=== PATIENT | female | born 1975 | race Caucasian/White ===

== ENCOUNTER 2017-01-09 11:11 | Emergency (ER) | payer MEDICARE, OTHER ==
[2017-01-09 11:32] VITALS: BP 118/92
--- OUTSIDE RECORDS SUMMARY | 2017-01-09 13:21 | XMS REPORT | CCD ---
:1975 Author Name RUTHANN VILLALTA Address [address] [facility] Unavailable [place], [place] [id number] Care Team Providers Name Role Phone EVE HUGHES, PAM BYRNE Attending Physician Unavailable PAM PRADO MD Er Physician 1 Unavailable VIOLET Bellaym Registered Nurse Unavailable Vital Signs Unknown. Allergies Allergy Code Allergy Type Reaction Status Unknown Code - 0 0 Propensity to adverse reactions (disorder) Active PERCOCET 0 Drug allergy (disorder) NAUSEA Active TETRACYCLINE 0 Drug allergy (disorder) Active TRIPTAN 0 Drug allergy (disorder) Active DOXYCYCLINE 0 Drug allergy (disorder) Active Procedures Unknown. History of Immunizations Unknown. Problems Unknown. Results CBC Test Name Code Test Result Test Units Test Date/Time WBC 6690-2 9.5000 K/uL 02/10/2014 14:08 RBC 789-8 4.0100 M/uL 02/10/2014 14:08 HEMOGLOBIN 718-7 13.1000 g/dL 02/10/2014 14:08 HEMATOCRIT 39.3000 % 02/10/2014 14:08 MCV 98.0000 fL 02/10/2014 14:08 MCH 32.7000 PG 02/10/2014 14:08 MCHC 33.3000 G/DL 02/10/2014 14:08 RDW-SD 48.3000 FL 02/10/2014 14:08 RDW-CV 13.9000 % 02/10/2014 14:08 PLATELETS 300.0000 K/UL 02/10/2014 14:08 MPV 10.7000 FL 02/10/2014 14:08 %GRAN 55.7000 % 02/10/2014 14:08 %LYMPH 31.3000 % 02/10/2014 14:08 %MONO 9.9000 % 02/10/2014 14:08 %EOS 2.6000 % 02/10/2014 14:08 %BASO 0.5000 % 02/10/2014 14:08 #GRAN 5.3000 K/UL 02/10/2014 14:08 #LYMPH 2.9800 K/UL 02/10/2014 14:08 #MONO 0.9400 K/UL 02/10/2014 14:08 #EOS 0.2500 K/UL 02/10/2014 14:08 #BASO 0.0500 K/UL 02/10/2014 14:08 SLIDE REVIEWED? NOT INDICATED N/A 02/10/2014 14:08 MANUAL DIFF NOT INDICATED N/A 02/10/2014 14:08 UA W/MICROSCOPIC EXAM Test Name Code Test Result Test Units Test Date/Time COLOR UR DK YELLOW N/A 02/10/2014 14:28 CLARITY UR CLOUDY N/A 02/10/2014 14:28 SP GRAV UR 1.025 N/A 02/10/2014 14:28 PH UR 6.0 N/A 02/10/2014 14:28 PROTEIN UR 1+ N/A 02/10/2014 14:28 GLUCOSE UR NEGATIVE N/A 02/10/2014 14:28 KETONE UR TRACE N/A 02/10/2014 14:28 BILIRUBIN UR NEGATIVE N/A 02/10/2014 14:28 BLOOD UR 2+ N/A 02/10/2014 14:28 LEUK UR 1+ N/A 02/10/2014 14:28 NITRITE UR POSITIVE N/A 02/10/2014 14:28 MICRO SEE BELOW N/A 02/10/2014 14:28 RBC/hpf 6 N/A 02/10/2014 14:28 WBC/hpf 12 N/A 02/10/2014 14:28 EPI UR 0-2 N/A 02/10/2014 14:28 BACTERIA UR MANY N/A 02/10/2014 14:28 MUCOUS FEW/LPF N/A 02/10/2014 14:28 CAST NONE SEE N/A 02/10/2014 14:28 CRYSTALS NONE SEE N/A 02/10/2014 14:28 CULTURE? YES N/A 02/10/2014 14:28 COMPREHENSIVE METABOLIC PANEL Test Name Code Test Result Test Units Test Date/Time GLUCOSE 103.0000 mg/dL 02/10/2014 14:08 SODIUM 139.0000 mmol/L 02/10/2014 14:08 POTASSIUM 3.3000 mmol/L 02/10/2014 14:08 CHLORIDE 107.0000 mmol/L 02/10/2014 14:08 CO2 24.0000 mmol/L 02/10/2014 14:08 BUN 13.0000 mg/dL 02/10/2014 14:08 CREATININE 1.0000 mg/dL 02/10/2014 14:08 BUN/CREAT 13.0000 02/10/2014 14:08 CALCIUM 9.5000 mg/dL 02/10/2014 14:08 TOTAL BILI 0.4000 mg/dL 02/10/2014 14:08 TOTAL PROTEIN 7.3000 g/dL 02/10/2014 14:08 ALBUMIN 3.7000 g/dL 02/10/2014 14:08 A/G RATIO 1.0000 02/10/2014 14:08 ALKALINE PHOS 131.0000 IU/L 02/10/2014 14:08 AST/SGOT 47.0000 IU/L 02/10/2014 14:08 ALT/SGPT 40.0000 IU/L 02/10/2014 14:08 ANION GAP 11.1000 mmol/L 02/10/2014 14:08 AGE 38.0000 YEARS 02/10/2014 14:08 GFR 66.6800 ml/min 02/10/2014 14:08 HCG QUALITATIVE, URINE Test Name Code Test Result Test Units Test Date/Time BHCG, URINE NEGATIVE N/A 02/10/2014 14:28 Medications Unknown. Medications Administered Unknown. Encounters Encounter Diagnosis Diagnosis Code Start Date PYELONEPHRITIS NOS 83603 02/10/2014 Social History Smoking Status Code Start Date End Date Current every day smoker 300202895 Patient Decision Aids Patient Decision Aid [facility] Patient Educational Materials Instructions You were admitted to [facility] on 02/10/2014 with a principle diagnosis of PYELONEPHRITIS NOS. You had the following procedures done:INJECT INFUSE NEC You were discharged from [facility] on 02/10/2014. Should you have any questions prior to discharge, please contact a member of your healthcare team. If you have left the hospital and have any questions, please contact your primary care physician. Chief Complaint and Reason For Visit Chief Complaint Date of Onset POSSIBLE KIDNEY STONE Function Status Unknown. Plan of Care Unknown. Referral/Transition of Care Unknown.
--- OUTSIDE RECORDS SUMMARY | 2017-01-09 13:21 | XMS REPORT | CCD ---
:1975 Author Name JAMILAH MIRAMONTES Address [address] [facility] Unavailable [place], [place] [id number] Care Team Providers Name Role Phone LISA GARZA Attending Physician Unavailable LISA GARZA Er Physician 1 Unavailable Vital Signs Vital Sign Value Unit Date/Time Recent/Initial? Weight Measured 199 lbs 03/22/2015 09:33 Initial VS Height 63 in 03/22/2015 09:33 Initial VS BMI (Body Mass Index) 35.25 kg/m^2 03/22/2015 09:33 Initial VS BSA (Body Surface Area) 2 m^2 03/22/2015 09:33 Initial VS Allergies Allergy Code Allergy Type Reaction Status Unknown Code - 0 0 Propensity to adverse reactions Active PERCOCET 85676 Drug allergy NAUSEA Active TETRACYCLINE 81921 Drug allergy NAUSEA Active TRIPTAN 0 Drug allergy PANIC ATTACKS Active DOXYCYCLINE 3640 Drug allergy NAUSEA Active Procedures Unknown or Not Available. History of Immunizations Immunization Code Date pneumococcal polysaccharide PPV23 33 08/11/2013 Influenza, seasonal, injectable, preservative free 140 09/09/2014 Influenza, seasonal, injectable 141 08/11/2013 no vaccine administered 998 1977 Problems Unknown or Not Available. Results Unknown or Not Available. Active Medications Medication Code Dose Units Frequency Route Modification Start Date/Time Abilify 10MG 683936 10 MILLIGRAMS DAILY ORAL 03/22/2015 Oral Tablet 09:51 Albuterol 088679 1 EACH INHALATION 03/22/2015 0.09MG/Actuat 09:51 ion Inhalation Aerosol Powder LaMICtal 988050 300 MILLIGRAMS AT BEDTIME ORAL 03/22/2015 150MG Oral 09:51 Tablet Levothroid 029622 DAILY 03/22/2015 175MCG Oral 09:51 Tablet NEXIUM 0 10 MILLIGRAMS DAILY BY MOUTH 03/22/2015 09:51 Oxybutynin 599284 5 MILLIGRAMS DAILY ORAL 03/22/2015 5MG Oral 09:51 Tablet SEROquel 541745 200 MILLIGRAMS AT BEDTIME ORAL 03/22/2015 200MG Oral 09:51 Tablet Singulair 176001 10 MILLIGRAMS DAILY ORAL 03/22/2015 10MG Oral 09:51 Tablet Symbicort 0810466 2 PUFF TWICE A DAY INHALATION 03/22/2015 160MCG-4.5MCG 09:51 /1 Actu Inhalation Aerosol Liquid Timolol 543035 10 MILLIGRAMS TWICE A DAY ORAL 03/22/2015 Maleate 10MG 09:51 Oral Tablet Topamax 200MG 502126 400 MILLIGRAMS TWICE A DAY ORAL 03/22/2015 Oral Tablet 09:51 Zoloft 100MG 181634 200 MILLIGRAMS DAILY ORAL 03/22/2015 Oral Tablet 09:51 Medications Administered During Visit Unknown or Not Available. Encounters Encounter Diagnosis Diagnosis Code Start Date CRUSHING INJURY FINGER 9273 03/22/2015 Social History Smoking Status Code Start Date End Date Current every day smoker [id number] 1998 Patient Decision Aids Unknown or Not Available. Discharge Instructions You were admitted to [facility] on 03/22/2015 with a principal diagnosis of CRUSHING INJURY FINGER. You were discharged from [facility] on 03/22/2015. Should you have any questions prior to discharge, please contact a member of your healthcare team. If you have left the hospital and have any questions, please contact your primary care physician. Chief Complaint and Reason For Visit Chief Complaint Date of Onset FINGER PAIN Function Status Unknown or Not Available. Plan of Care Unknown or Not Available. Referral/Transition of Care Unknown or Not Available.
--- OUTSIDE RECORDS SUMMARY | 2017-01-09 13:21 | XMS REPORT | CCD ---
:1975 Author Name RUTHANN VILLALTA Address [address] [facility] Unavailable [place], [place] [id number] Care Team Providers Name Role Phone GUALBERTO HUGHES, LEIGH Luis Attending Physician Unavailable LEIGH BURCIAGA MD Er Physician 1 Unavailable Vital Signs Vital Sign Value Unit Date/Time Recent/Initial? Weight Measured 200 lbs 03/09/2015 04:10 Initial VS Height 63 in 03/09/2015 04:10 Initial VS BMI (Body Mass Index) 35.43 kg/m^2 03/09/2015 04:10 Initial VS BSA (Body Surface Area) 2.01 m^2 03/09/2015 04:10 Initial VS Allergies Allergy Code Allergy Type Reaction Status Unknown Code - 0 0 Propensity to adverse reactions Active PERCOCET 73006 Drug allergy NAUSEA Active TETRACYCLINE 92805 Drug allergy NAUSEA Active TRIPTAN 0 Drug allergy PANIC ATTACKS Active DOXYCYCLINE 3640 Drug allergy NAUSEA Active Procedures Procedure Code Procedure Type Date CHEST [address] 03/09/2015 History of Immunizations Immunization Code Date pneumococcal polysaccharide PPV23 33 08/11/2013 Influenza, seasonal, injectable, preservative free 140 09/09/2014 Influenza, seasonal, injectable 141 08/11/2013 no vaccine administered 998 1977 Problems Unknown or Not Available. Results CBC W/DIFF - Collect Date/Time: 03/09/2015 05:02 Test Name Code Test Result Test Units Test Ref Range WBC 6690-2 9.0 K/uL L=3.2 H=10.0 RBC 789-8 4.14 M/uL L=4.00 H=5.20 HEMOGLOBIN 718-7 13.3 g/dL L=12.1 H=15.6 HEMATOCRIT 39.7 % L=35.0 H=47.0 MCV 95.9 fL L=81.0 H=101 MCH 32.1 PG L=26.0 H=38.0 MCHC 33.5 G/DL L=31.0 H=37.0 RDW-SD 49.1 FL L=37.0 H=54.0 RDW-CV 14.3 % L=11.0 H=16.0 PLATELETS 325 K/UL L=140 H=380 MPV 10.5 FL L=9.0 H=13.0 %GRAN 54.4 % L=0.0 H=75.0 %LYMPH 34.3 % L=0.0 H=50.0 %MONO 8.5 % L=0.0 H=14.0 %EOS 2.4 % L=0.0 H=6.0 %BASO 0.4 % L=0.0 H=1.0 #GRAN 4.89 K/UL L=1.80 H=7.80 #LYMPH 3.09 K/UL L=0.30 H=4.00 #MONO 0.77 K/UL L=0.00 H=0.70 #EOS 0.22 K/UL L=0.00 H=0.40 #BASO 0.04 K/UL L=0.00 H=0.10 SLIDE REVIEWED? NOT INDICATED N/A MANUAL DIFF NOT INDICATED N/A Active Medications Unknown or Not Available. Medications Administered During Visit Unknown or Not Available. Encounters Encounter Diagnosis Diagnosis Code Start Date ASTHMA, UNSPECIFIED 67794 03/09/2015 Social History Smoking Status Code Start Date End Date Current every day smoker [id number] 1998 Patient Decision Aids Unknown or Not Available. Discharge Instructions You were admitted to [facility] on 03/09/2015 with a principal diagnosis of ASTHMA, UNSPECIFIED. You were discharged from [facility] on 03/09/2015. Should you have any questions prior to discharge, please contact a member of your healthcare team. If you have left the hospital and have any questions, please contact your primary care physician. Chief Complaint and Reason For Visit Chief Complaint Date of Onset SHORT OF BREATH COUGHING HEADACHE SWELLING RT FACE Function Status Unknown or Not Available. Plan of Care Unknown or Not Available. Referral/Transition of Care Unknown or Not Available.
--- NOTE | 2017-01-09 13:28 | ERNOTE ---
ENT HPI Date of Service: 01/09/17 Presenting Symptoms: dental pain Time Seen by Provider: 01/09/17 13:03 Source: patient, RN notes reviewed, other - [employer] database Exam Limitations: no limitations - Immun/Allergies/Home Medications Immunizations: IMMUNIZATION HX Immunizations Up to Date No History of Influenza Vaccine No Hx Pneumococcal Vaccination No Allergies/Adverse Reactions: Allergies Allergy/AdvReac Type Severity Reaction Status Date / Time sumatriptan [From Imitrex] Allergy Mild Verified 01/09/17 11:32 sumatriptan succinate Allergy Mild Verified 01/09/17 11:32 [From Imitrex] tramadol AdvReac Nausea Verified 01/09/17 11:32 Home Medications: HOME MEDICATIONS Tizanidine HCl 4 mg PO Q8H PRN #90 capsule 02/29/16 [Last Taken Unknown] clonazePAM [Klonopin] 1 mg PO BID PRN #60 tablet 02/29/16 [Last Taken Unknown] ARIPiprazole [Abilify] 10 mg PO DAILY 03/26/16 [Last Taken Unknown] Esomeprazole Magnesium [Nexium] 40 mg PO DAILY 03/26/16 [Last Taken Unknown] Lamotrigine [Lamictal Xr] 300 mg PO HS 03/26/16 [Last Taken Unknown] Levothyroxine Sodium [Synthroid] 150 mcg PO DAILY 03/26/16 [Last Taken Unknown] Timolol Maleate [Blocadren] 10 mg PO BID 03/26/16 [Last Taken Unknown] Topiramate [Topamax] 200 mg PO BID 03/26/16 [Last Taken Unknown] Modafinil [Provigil] 200 mg PO BID 08/16/16 [Last Taken Unknown] Oxybutynin Chloride [Ditropan Xl] 10 mg PO HS 10/12/16 [Last Taken Unknown] Quetiapine Fumarate [Seroquel] 300 mg PO HS 10/12/16 [Last Taken Unknown] Sertraline HCl [Zoloft] 50 mg PO HS 10/12/16 [Last Taken Unknown] Budesonide/Formoterol Fumarate [Symbicort 160-4.5 Mcg Inhaler] 2 puff IH BID #1 inhaler 10/13/16 [Last Taken Unknown] Butalbit/Acetamin/Caff/Codeine [Fioricet W/Codeine] 1 cap PO Q6H PRN #10 capsule 10/13/16 [Last Taken Unknown] HYDROcodone/ACETAMINOPHEN [[place] 5-325] 1 - 2 tab PO Q6H PRN #20 tab 01/09/17 [ Last Taken Unknown] - History of Present Illness Narrative: 41 y/o female to ED for dental pain. She saw her dentist 2 days ago and is scheduled to see an oral surgeon to have the tooth pulled in 2 days. She has been taking OTC pain meds without improvement. Date (Duration): 01/07/17 Severity: Present: severe ENT Location: Present: dental Prearrival Treatment: Present: over the counter meds Associated Symptoms - ENT: Reports: malaise, tooth pain, headache. Denies: fever, poor fluid intake, poor solid intake, facial pain/swelling, jaw swelling , ear drainage, trauma Review of Systems - Review of Systems Constitutional: Present: See HPI EYE: Present: no symptoms reported ENT: Present: See HPI Respiratory: Absent: shortness of breath, cough Cardiology: Present: no symptoms reported Gastrointestinal/Abdominal: Absent: nausea, vomiting Genitourinary: Present: no symptoms reported Musculoskeletal: Absent: muscle stiffness, neck pain Skin: Absent: rash, lesions, lumps Neurological: Present: See HPI Endocrine: Present: no symptoms reported Hematologic/Lymphatic: Present: no symptoms reported Psych: Present: no symptoms reported - Patient's Past Medical History Patient History - Medical: Anxiety, Bipolar, Depression, GERD, Migraines, Other Patient History - Cardiac/Respiratory: Asthma Patient History - Cancer: No Hx of Cancer Patient History - Surgical Procedures: Appendectomy, Cholecystectomy, Other Patient History - Other: None LMP (females 10-50): Depo provera - Family History Grandmother-Maternal Family History - Medical: Family History - Cardiac/Respiratory: No pertinent hx, COPD Father Family History - Cardiac/Respiratory: Hypertension Mother Family History - Medical: No pertinent hx - Social History Living Situations: home Abuse History: No History of abuse Psych History: Hx of Anxiety, Hx of Depression, Hx of Bipolar Disorder, Current tx/ever been on anti-depressants or anti-anxiety meds Does anyone smoke in the home?: Yes Smoking Status: Current every day smoker Alcohol Use: occasionally Drug Use: none - Immunizations Immunizations Up to Date: No Hx Pneumococcal Vaccination: No History of Influenza Vaccine: No Physical Exam - Physical Exam General Appearance: Present: wd/wn, alert, mild distress Eye Exam: Normal inspection: bilateral Ears, Nose, Throat: Present: normal except -, other - left upper back molar with decay, tender to palpation - no facial/jaw swelling Neck: Present: normal inspection, nontender, supple. Absent: lymphadenopathy (R ), lymphadenopathy (L) Respiratory: Present: no respiratory distress, normal breath sounds, no accessory muscle use, lungs clear Cardiovascular/Chest: Present: regular rate, rhythm, no murmur Neurological Exam: Present: alert, oriented, normal mood/affect Skin Exam: Present: normal color, warm/dry ED Progress - Vital Signs Patient's Vital Signs:: I have reviewed the patient's vital signs. Vital Signs: Vital Signs 01/09/17 11:28 Temperature 37 C Pulse Rate 86 Respiratory 12 Rate Blood Pressure 118/92 O2 Sat by Pulse 98 Oximetry - Progress/Reassessment Chief Complaint: Dental Problem Progress:: Unchanged Departure Clinical Impression: Pain, dental - Departure Disposition: Home Follow Up Needed Condition: Stable Instructions: Dental Caries, [id number] Additional Instructions: Continue ibuprofen - 800 mg every 8 hours with food See oral surgeon as scheduled Referrals: Monik Trimble MD [Primary Care Provider] - Prescriptions: HYDROcodone/ACETAMINOPHEN [[place] 5-325] 1 - 2 tab PO Q6H PRN #20 tab PRN Reason: Pain
== END 2017-01-09 13:40 | disposition home or self-care (01) ==
LOC: ER 11:11
DX: K08.89 Other specified disorders of teeth and supporting structures (principal); F31.70 Bipolar disorder, currently in remission, most recent episode unspecified; F41.8 Other specified anxiety disorders; E03.9 Hypothyroidism, unspecified; K21.9 Gastro-esophageal reflux disease without esophagitis

== ENCOUNTER 2017-02-23 14:46 | Emergency (ER) | payer MEDICARE, OTHER ==
[2017-02-23 15:20] LABS: Hematocrit 40.3 % (37.0-47.0); Hemoglobin 13.4 gm/dL (12.5-16.0); Mean Cell Volume 98.1 fl (78-100); Mean Corpuscular Hemoglobin 32.6 pg (27-31); Mean Corpuscular Hgb Conc 33.3 g/dl (32-36); Mean Platelet Volume 9.9 fl (6.0-9.5); Neutrophil # 5.9 K/mm3 (1.3-6.0); Neutrophil % 61.1 % (42-75.0); Platelet Count 350 K/mm3 (150-450); Red Blood Count 4.11 M/mm3 (4.2-5.4); Red Cell Distribution Width 12.3 % (11.5-14.0); White Blood Count 9.6 K/mm3 (4.0-10.5)
--- NOTE | 2017-02-23 15:31 | ERNOTE ---
Psychological HPI - General Chief Complaint: Psychiatric Problem Source: Reports: patient Exam Limitations: Reports: no limitations - Immun/Allergies/Home Medications Allergies/Adverse Reactions: Allergies sumatriptan [From Imitrex] Allergy (Mild, Verified 02/23/17 14:58) sumatriptan succinate [From Imitrex] Allergy (Mild, Verified 02/23/17 14:58) tramadol Adverse Reaction (Verified 02/23/17 14:58) Nausea Home Medications: HOME MEDICATIONS clonazePAM [Klonopin] 1 mg PO BID PRN #60 tablet 02/29/16 [Last Taken Unknown] tiZANidine HCL [Tizanidine HCl] 4 mg PO Q8H PRN #90 capsule 02/29/16 [Last Taken Unknown] ARIPiprazole [Abilify] 10 mg PO DAILY 03/26/16 [Last Taken Unknown] Esomeprazole Magnesium [Nexium] 40 mg PO DAILY 03/26/16 [Last Taken Unknown] Levothyroxine Sodium [Synthroid] 150 mcg PO DAILY 03/26/16 [Last Taken Unknown] Timolol Maleate [Blocadren] 10 mg PO BID 03/26/16 [Last Taken Unknown] Topiramate [Topamax] 200 mg PO BID 03/26/16 [Last Taken Unknown] lamoTRIgine [Lamictal Xr] 300 mg PO HS 03/26/16 [Last Taken Unknown] Modafinil [Provigil] 200 mg PO BID 08/16/16 [Last Taken Unknown] Oxybutynin Chloride [Ditropan Xl] 10 mg PO HS 10/12/16 [Last Taken Unknown] QUEtiapine FUMARATE [Seroquel] 300 mg PO HS 10/12/16 [Last Taken Unknown] Sertraline HCl [Zoloft] 50 mg PO HS 10/12/16 [Last Taken Unknown] Butalbit/Acetamin/Caff/Codeine [Fioricet W/Codeine] 1 cap PO Q6H PRN #10 capsule 10/13/16 [Last Taken Unknown] Diclofenac Potassium 50 mg PO DAILY 02/23/17 [Last Taken Unknown] LORazepam [Ativan] 1 mg PO BID #10 tablet 02/23/17 [Last Taken Unknown] Sertraline HCl [Zoloft] 50 mg PO DAILY 02/23/17 [Last Taken Unknown] - History of Present Illness Time Seen by Provider: 02/23/17 15:29 Arrived by: Reports: private car Onset/duration: Reports: gradual onset Intent: Reports: prior thoughts of suicide Mechanism: Reports: other - Pt is frustrated over not being able to control her anxiety and is here for help Situational Problems: Reports: significant other, work Associated Symptoms: Reports: angry, frustrated Prior Treament: Reports: recently seen Review of Systems - Review of Systems Constitutional: Present: See HPI EYE: Present: no symptoms reported ENT: Present: no symptoms reported Respiratory: Present: no symptoms reported Cardiology: Present: no symptoms reported Gastrointestinal/Abdominal: Present: no symptoms reported Genitourinary: Present: no symptoms reported Musculoskeletal: Present: no symptoms reported Skin: Present: no symptoms reported Neurological: Present: no symptoms reported Endocrine: Present: no symptoms reported Hematologic/Lymphatic: Present: no symptoms reported Psych: Present: anxiety, emotional problems - Patient's Past Medical History Patient History - Medical: Anxiety, Bipolar, Depression, GERD, Migraines Patient History - Cardiac/Respiratory: Asthma Patient History - Cancer: No Hx of Cancer Patient History - Surgical Procedures: Appendectomy, Cholecystectomy, Other Patient History - Other: None - Family History Grandmother-Maternal Family History - Medical: Family History - Cardiac/Respiratory: No pertinent hx, COPD Father Family History - Cardiac/Respiratory: Hypertension Mother Family History - Medical: No pertinent hx - Social History Living Situations: home Abuse History: No History of abuse Psych History: Hx of Anxiety, Hx of Depression, Hx of Bipolar Disorder, Current tx/ever been on anti-depressants or anti-anxiety meds Does anyone smoke in the home?: Yes Smoking Status: Current every day smoker Have you smoked in the past 12 months: Yes Alcohol Use: occasionally Drug Use: none - Immunizations Immunizations Up to Date: No Hx Pneumococcal Vaccination: No History of Influenza Vaccine: No Physical Exam - Physical Exam General Appearance: Present: wd/wn, alert, moderate distress, anxious Eye Exam: Normal inspection: bilateral, PERRL: bilateral Ears, Nose, Throat: Present: normal ENT inspection, H, normal pharynx Neck: Present: normal inspection, nontender Respiratory: Present: no respiratory distress, normal breath sounds, no accessory muscle use, chest nontender, lungs clear Cardiovascular/Chest: Present: regular rate, rhythm, no murmur, normal peripheral pulses Gastrointestinal/Abdominal: Present: normal bowel sounds, nontender, nondistended, soft, no organomegaly Rectal Exam: Present: deferred Back Exam: Present: normal inspection, normal range of motion Extremity Exam: Present: normal inspection, non-tender, no edema, normal range of motion Neurological Exam: Present: alert, oriented, normal mood/affect Skin Exam: Present: normal color, warm/dry Lymphatic Exam: Present: no adenopathy ED Progress - Results and Orders Patient's Lab Results:: I have reviewed the patient's lab results. - Vital Signs Patient's Vital Signs:: I have reviewed the patient's vital signs. Vital Signs: Vital Signs 02/23/17 14:53 Temperature 37.1 C Pulse Rate 124 H Respiratory 14 Rate O2 Sat by Pulse 97 Oximetry - Progress/Reassessment Chief Complaint: Psychiatric Problem Progress:: Improved Plan - Plan Plan: Patient was given 1 mg of Ativan and felt substantially better. Patient denies any thoughts of suicide or harming herself or anybody else. Patient will be advised to double up on her Xanax for now and follow-up with her family physician or psychiatrist for further therapeutic intervention Departure Clinical Impression: Panic attack as reaction to stress, Bipolar 1 disorder - Departure Disposition: Home self-care Condition: Good Instructions: Panic Attacks, [id number], Bipolar Disorder Referrals: Hoang Cazares DO [Primary Care Provider] - Prescriptions: LORazepam [Ativan] 1 mg PO BID #10 tablet
[2017-02-23] MEDS ORDERED: LORazepam 1 MG TABLET PO ONE (15:36)
[2017-02-23] MEDS ORDERED: CAFFEINE PO ONE (15:37)
[2017-02-23] MEDS ORDERED: ASPIRIN PO ONE (15:37)
[2017-02-23] MEDS ORDERED: BUTALBITAL PO ONE (15:37)
[2017-02-23] MEDS ORDERED: ACETAMINOPHEN WITH CODEINE 1 EACH TABLET PO ONE (15:38)
[2017-02-23 15:48] LABS: ALT 36 U/L (19-67); AST 25 U/L (0-48); Albumin * 3.9 gm/dl (3.4-5.0); Alkaline Phosphatase * 95 U/L (50-170); Anion Gap 14.4 mmol/L (6.8-13.8); Bilirubin, Total 0.5 mg/dL (0.0-1.1); Blood Urea Nitrogen 12 mg/dL (3-23); Ca. Corrected For Albumin 9.9 mg/dL (8.4-10.2); Calcium * 10.1 mg/dL (7.9-10.9); Carbon Dioxide 24.8 mmol/L (24-32.6); Chloride 106 mmol/L (97-106); Glucose * 105 mg/dL (70-110); Potassium 3.2 mmol/L (3.4-4.6); Sodium 142 mmol/L (132-142); TSH * 4.449 uIU/mL (0.358-3.74); Total Protein 8.1 gm/dL (6.2-8.2)
[2017-02-23] MEDS ORDERED: POTASSIUM CHLORIDE 20 MEQ TABLET.SA PO ONE (16:02)
[2017-02-23 16:32] LABS: Urine Bilirubin 1 mg/dl (NEGATIVE); Urine Blood Negative /ul (NEGATIVE); Urine Ketone Negative (NEGATIVE); Urine Nitrite Negative (NEGATIVE); Urine Protein 15 mg/dL (NEGATIVE); Urine Specific Gravity >=1.030 SP.GR. (1.005-1.010); Urine Urobilinogen Normal (NORMAL)
[2017-02-23 16:39] LABS: Urine Appearance Slightly Cloudy; Urine Color Dark Yellow
[2017-02-23 16:42] LABS: Urine RBC None Seen /hpf (0-5); Urine WBC 0-5 /hpf (0-5)
[2017-02-23 16:43] LABS: Urine Bacteria 1+; Urine Mucus Few - 1+
[2017-02-23 16:55] LABS: Cocaine Ur Negative (NEGATIVE); Urine Barbiturate Negative (NEGATIVE); Urine Opiates Negative (NEGATIVE); Urine PCP Negative (NEGATIVE); Urine THC Negative (NEGATIVE)
[2017-02-23 17:02] LABS: Urine Benzodiazepines Positive (NEGATIVE)
[2017-02-23] MEDS ORDERED: LORazepam 1 MG TABLET ONE (17:09)
[2017-02-23] MEDS ORDERED: ACETAMINOPHEN WITH CODEINE 1 EACH TABLET ONE (17:09)
[2017-02-23] MEDS ORDERED: POTASSIUM CHLORIDE 20 MEQ TABLET.SA ONE (17:10)
[2017-02-23 18:12] VITALS: BP 117/89
[2017-02-23] MEDS ORDERED: BUTALB/ACETAMINOPHEN/CAFFEINE 1 TAB TABLET PO ONE (18:15)
== END 2017-02-23 19:00 | disposition home or self-care (01) ==
LOC: ER 14:46
DX: F41.0 Panic disorder [episodic paroxysmal anxiety] (principal); F43.0 Acute stress reaction; F31.9 Bipolar disorder, unspecified; F17.210 Nicotine dependence, cigarettes, uncomplicated
CPT/HCPCS: 36415; 80053; 80307; 81001; 84443; 85025; 99284; G0480; G0481

== ENCOUNTER 2017-03-27 03:48 | Emergency (ER) | payer MEDICARE, OTHER ==
--- NOTE | 2017-03-27 04:09 | ERNOTE ---
Lower Extremity HPI - General Lower Extremities Pain: ankle: right - pain Time Seen by Provider: 03/27/17 04:06 Source: patient Exam Limitations: no limitations - Immun/Allergies/Home Medications Immunizations: IMMUNIZATION HX Immunizations Up to Date Yes History of Influenza Vaccine No Hx Pneumococcal Vaccination No Allergies/Adverse Reactions: Allergies Allergy/AdvReac Type Severity Reaction Status Date / Time sumatriptan [From Imitrex] Allergy Mild Verified 02/23/17 14:58 sumatriptan succinate Allergy Mild Verified 02/23/17 14:58 [From Imitrex] tramadol AdvReac Nausea Verified 02/23/17 14:58 Home Medications: HOME MEDICATIONS clonazePAM [Klonopin] 1 mg PO BID PRN #60 tablet 02/29/16 [Last Taken Unknown] tiZANidine HCL [Tizanidine HCl] 4 mg PO Q8H PRN #90 capsule 02/29/16 [Last Taken Unknown] ARIPiprazole [Abilify] 10 mg PO DAILY 03/26/16 [Last Taken Unknown] Esomeprazole Magnesium [Nexium] 40 mg PO DAILY 03/26/16 [Last Taken Unknown] Timolol Maleate [Blocadren] 10 mg PO BID 03/26/16 [Last Taken Unknown] Topiramate [Topamax] 200 mg PO BID 03/26/16 [Last Taken Unknown] lamoTRIgine [Lamictal Xr] 300 mg PO HS 03/26/16 [Last Taken Unknown] Modafinil [Provigil] 200 mg PO BID 08/16/16 [Last Taken Unknown] Oxybutynin Chloride [Ditropan Xl] 10 mg PO HS 10/12/16 [Last Taken Unknown] QUEtiapine FUMARATE [Seroquel] 300 mg PO HS 10/12/16 [Last Taken Unknown] Sertraline HCl [Zoloft] 50 mg PO HS 10/12/16 [Last Taken Unknown] Butalbit/Acetamin/Caff/Codeine [Fioricet W/Codeine] 1 cap PO Q6H PRN #10 capsule 10/13/16 [Last Taken Unknown] Diclofenac Potassium 50 mg PO DAILY 02/23/17 [Last Taken Unknown] LORazepam [Ativan] 1 mg PO BID #10 tablet 02/23/17 [Last Taken Unknown] Levothyroxine Sodium [Synthroid] 175 mcg PO DAILY 03/27/17 [Last Taken Unknown] - History of Present Illness Narrative: PT tripped and rolled her right ankle. Immediately had pain and swelling Occurred: just prior to arrival Location of Incident: home Method of Injury: Reports: fell, twisted Reason for Fall: Reports: tripped Loss of Consciousness: Reports: no loss of consciousness Modifying Factors - (Improves): Reports: immobilization Modifying Factors - (Worsens): Reports: movement Associated Symptoms: Reports: unable to bear weight Other Injuries: Reports: none Review of Systems - Review of Systems Constitutional: Present: no symptoms reported EYE: Present: no symptoms reported ENT: Present: no symptoms reported Respiratory: Present: no symptoms reported Cardiology: Present: no symptoms reported Genitourinary: Present: no symptoms reported Musculoskeletal: Present: See HPI. Absent: back pain Skin: Absent: rash Neurological: Absent: weakness, numbness, tingling Endocrine: Present: no symptoms reported Hematologic/Lymphatic: Present: no symptoms reported Psych: Present: no symptoms reported - Patient's Past Medical History Patient History - Medical: Anxiety, Bipolar, Depression, GERD, Migraines Patient History - Cardiac/Respiratory: Asthma Patient History - Cancer: No Hx of Cancer Patient History - Surgical Procedures: Appendectomy, Cholecystectomy, Other Patient History - Other: None - Family History Grandmother-Maternal Family History - Medical: Family History - Cardiac/Respiratory: No pertinent hx, COPD Father Family History - Cardiac/Respiratory: Hypertension Mother Family History - Medical: No pertinent hx - Social History Living Situations: home Abuse History: No History of abuse Psych History: Hx of Anxiety, Hx of Depression, Hx of Bipolar Disorder, Current tx/ever been on anti-depressants or anti-anxiety meds Does anyone smoke in the home?: Yes Smoking Status: Current every day smoker Patient requests Smoking Cessation Consult: No Initiate information on Smoking Cessation: No Alcohol Use: occasionally Drug Use: none - Immunizations Immunizations Up to Date: Yes Hx Pneumococcal Vaccination: No History of Influenza Vaccine: No Physical Exam - Physical Exam General Appearance: Present: wd/wn, alert, no apparent distress Eye Exam: Normal inspection: bilateral Neck: Present: normal inspection, full range of motion Respiratory: Present: no respiratory distress, no accessory muscle use Extremity Exam: Present: joint swelling - right ankle moderate laterally and mild medially Neurological Exam: Present: alert, oriented, normal mood/affect Skin Exam: Present: normal color, warm/dry ED Progress - Vital Signs Vital Signs: Vital Signs 03/27/17 03:50 Temperature 36.7 C Pulse Rate 76 Respiratory 18 Rate Blood Pressure 115/69 O2 Sat by Pulse 98 Oximetry - X-Ray X-Ray #1 X-Ray: ankle Interpretation: Interp. by me X-ray Comments: No fracture or disolcation. STS noted medially and laterally - Progress/Reassessment Chief Complaint: Lower Extremity Pain/ Injury Departure Clinical Impression: Ankle sprain Qualifiers: Encounter type: initial encounter Involved ligament of ankle: calcaneofibular ligament Laterality: right Qualified Code(s): S93.411A - Sprain of calcaneofibular ligament of right ankle, initial encounter - Departure Disposition: Home self-care Condition: Good Instructions: Cryotherapy, [id number], Ankle Sprain Additional Instructions: use crutches for now and begin to put weight on it slowly. Keep it wrapped whenever you are up for 7-10 days or until it is feeling better. you may take Ibuprofen or aleve as needed for pain. Referrals: Monik Trimble MD [Primary Care Provider] -
[2017-03-27 05:34] VITALS: BP 107/58
== END 2017-03-27 04:30 | disposition home or self-care (01) ==
LOC: ER 03:48
DX: S93.411A Sprain of calcaneofibular ligament of right ankle, initial encounter (principal); W18.09XA Striking against other object with subsequent fall, initial encounter; F17.210 Nicotine dependence, cigarettes, uncomplicated

== ENCOUNTER 2017-04-13 19:46 | Emergency (ER) | payer MEDICARE, OTHER ==
--- NOTE | 2017-04-13 20:22 | ERNOTE ---
Lower Extremity HPI - Narrative Date of Service: 04/13/17 - General Lower Extremities Pain: foot: right, ankle: right Time Seen by Provider: 04/13/17 20:11 Source: patient Exam Limitations: no limitations - Immun/Allergies/Home Medications Immunizations: IMMUNIZATION HX Immunizations Up to Date Yes History of Influenza Vaccine No Hx Pneumococcal Vaccination No Allergies/Adverse Reactions: Allergies Allergy/AdvReac Type Severity Reaction Status Date / Time sumatriptan [From Imitrex] Allergy Mild Verified 02/23/17 14:58 sumatriptan succinate Allergy Mild Verified 02/23/17 14:58 [From Imitrex] tramadol AdvReac Nausea Verified 02/23/17 14:58 Home Medications: HOME MEDICATIONS clonazePAM [Klonopin] 1 mg PO BID PRN #60 tablet 02/29/16 [Last Taken Unknown] tiZANidine HCL [Tizanidine HCl] 4 mg PO Q8H PRN #90 capsule 02/29/16 [Last Taken Unknown] ARIPiprazole [Abilify] 10 mg PO DAILY 03/26/16 [Last Taken Unknown] Esomeprazole Magnesium [Nexium] 40 mg PO DAILY 03/26/16 [Last Taken Unknown] Timolol Maleate [Blocadren] 10 mg PO BID 03/26/16 [Last Taken Unknown] Topiramate [Topamax] 200 mg PO BID 03/26/16 [Last Taken Unknown] lamoTRIgine [Lamictal Xr] 300 mg PO HS 03/26/16 [Last Taken Unknown] Modafinil [Provigil] 200 mg PO BID 08/16/16 [Last Taken Unknown] Oxybutynin Chloride [Ditropan Xl] 10 mg PO HS 10/12/16 [Last Taken Unknown] QUEtiapine FUMARATE [Seroquel] 300 mg PO HS 10/12/16 [Last Taken Unknown] Sertraline HCl [Zoloft] 50 mg PO HS 10/12/16 [Last Taken Unknown] Butalbit/Acetamin/Caff/Codeine [Fioricet W/Codeine] 1 cap PO Q6H PRN #10 capsule 10/13/16 [Last Taken Unknown] Diclofenac Potassium 50 mg PO DAILY 02/23/17 [Last Taken Unknown] Levothyroxine Sodium [Synthroid] 175 mcg PO DAILY 03/27/17 [Last Taken Unknown] Ibuprofen [Motrin] 600 mg PO TID PRN #30 tab 04/13/17 [Last Taken Unknown] - History of Present Illness Narrative: C/O OF "ROLLING" HER ANKLE TYWICE IN 24 HRS. Review of Systems - Review of Systems Constitutional: Present: See HPI Musculoskeletal: Present: See HPI, joint swelling All Other Systems: All systems neg except as marked - Patient's Past Medical History Patient History - Medical: Anxiety, Bipolar, Depression, GERD, Migraines, Other Patient History - Cardiac/Respiratory: Asthma Patient History - Cancer: No Hx of Cancer Patient History - Surgical Procedures: Appendectomy, Cholecystectomy, Other Patient History - Other: None LMP (females 10-50): Depo - Family History Grandmother-Maternal Family History - Medical: Family History - Cardiac/Respiratory: No pertinent hx, COPD Father Family History - Cardiac/Respiratory: Hypertension Mother Family History - Medical: No pertinent hx - Social History Living Situations: home Abuse History: No History of abuse Psych History: Hx of Anxiety, Hx of Depression, Hx of Bipolar Disorder, Current tx/ever been on anti-depressants or anti-anxiety meds Does anyone smoke in the home?: Yes Smoking Status: Current every day smoker Have you smoked in the past 12 months: Yes Do you dip or chew tobacco: No Alcohol Use: rarely Drug Use: none - Immunizations Immunizations Up to Date: Yes Hx Pneumococcal Vaccination: No History of Influenza Vaccine: No Physical Exam - Physical Exam General Appearance: Present: wd/wn, alert, severe distress Peripheral Pulses: N=norm/S=strong/W=weak/B=bound/A=absent: Dorsalis-pedis (R): Normal Extremity Exam: Present: bony tenderness - C/O PAIN TO RIGHT LATERAL ANKLE AND BASE OF 5TH METATARSAL. SHE HASMILD TO MODERATE BRUISING AND SOFT TISSUE SWELLING IN THE SAME AREA. NORMAL DISTAL REFILL AND SENSATION. , joint swelling ED Progress - Vital Signs Vital Signs: Vital Signs 04/13/17 19:52 Temperature 36.9 C Pulse Rate 76 Respiratory 14 Rate Blood Pressure 154/88 O2 Sat by Pulse 99 Oximetry - X-Ray X-Ray #1 X-Ray: ankle - NL Interpretation: Interp. by me X-Ray #2 X-Ray: foot - R FOOT -NL Interpretation: Interp. by me - Progress/Reassessment Chief Complaint: Lower Extremity Pain/ Injury Departure Clinical Impression: Foot pain, right Ankle pain Qualifiers: Chronicity: acute Laterality: right Qualified Code(s): M25.571 - Pain in right ankle and joints of right foot - Departure Disposition: Home Follow Up Needed Condition: Fair Instructions: Ankle Sprain, [id number], Foot Sprain Additional Instructions: REST,GLENNA, ICE, AND ELEVATE FOR 48HRS. GRADUALLY INCREASE ACTIVITY TOLERATED. IF THE RADIOLOGIST SEES SOMETHING I DO NOT WHEN THEY CHECK XRAYS TOMORROW, WE WILL CALL YOU. Referrals: Monik Trimble MD [Primary Care Provider] - Prescriptions: Ibuprofen [Motrin] 600 mg PO TID PRN #30 tab PRN Reason: Pain
[2017-04-13 20:50] VITALS: BP 140/82
== END 2017-04-13 20:57 | disposition home or self-care (01) ==
LOC: ER 19:46
DX: M79.671 Pain in right foot (principal); M25.571 Pain in right ankle and joints of right foot

== ENCOUNTER 2017-04-18 16:59 | Inpatient (IN) | payer MEDICARE, OTHER ==
[2017-04-18 17:43] LABS: Hematocrit 36.1 % (37.0-47.0); Mean Corpuscular Hemoglobin 33.2 pg (27-31); Mean Corpuscular Hgb Conc 33.2 g/dl (32-36); Mean Platelet Volume 11.6 fl (6.0-9.5); Neutrophil # 3.9 K/mm3 (1.3-6.0); Neutrophil % 51.3 % (42-75.0); Platelet Count 190 K/mm3 (150-450); Red Blood Count 3.61 M/mm3 (4.2-5.4); Red Cell Distribution Width 13.2 % (11.5-14.0); White Blood Count 7.6 K/mm3 (4.0-10.5)
[2017-04-18] MEDS: PROPOFOL 1,000 MG/100 ML PIGGYBACK IV PRN (17:52)
[2017-04-18 18:04] LABS: ALT 24 U/L (19-67); AST 16 U/L (0-48); Acetaminophen * 1.2 mcg/mL (10.0-30.0); Albumin * 3.1 gm/dl (3.4-5.0); Alkaline Phosphatase * 62 U/L (50-170); Anion Gap 12.2 mmol/L (6.8-13.8); BUN/Creatinine Ratio 15.9 (9.0-21.6); Bilirubin, Total 0.2 mg/dL (0.0-1.1); Blood Urea Nitrogen 13 mg/dL (3-23); Ca. Corrected For Albumin 9.9 mg/dL (8.4-10.2); Calcium * 9.5 mg/dL (7.9-10.9); Carbon Dioxide 23.7 mmol/L (24-32.6); Chloride 110 mmol/L (97-106); Glucose * 101 mg/dL (70-110); Potassium 3.9 mmol/L (3.4-4.6); Salicylate 4.4 mg/dL (2.8-20.0); Sodium 142 mmol/L (132-142); Total Protein 6.3 gm/dL (6.2-8.2); Troponin I Less than 0.017 ng/ml (0.00-0.10)
[2017-04-18 18:38] LABS: Urine Bilirubin Negative (NEGATIVE); Urine Blood Negative /ul (NEGATIVE); Urine Ketone Negative (NEGATIVE); Urine Protein Negative (NEGATIVE); Urine Specific Gravity >=1.030 SP.GR. (1.005-1.010); Urine Urobilinogen Normal (NORMAL)
--- NOTE | 2017-04-18 18:38 | ERNOTE ---
Medical Problem HPI - General Chief Complaint: Drug Overdose Time Seen by Provider: 04/18/17 17:08 Source: EMS Exam Limitations: clinical condition - Immun/Allergies/Home Medications Immunizations: IMMUNIZATION HX Immunizations Up to Date Yes History of Influenza Vaccine No Hx Pneumococcal Vaccination No Allergies/Adverse Reactions: Allergies sumatriptan [From Imitrex] Allergy (Mild, Verified 04/18/17 17:15) sumatriptan succinate [From Imitrex] Allergy (Mild, Verified 04/18/17 17:15) tramadol Adverse Reaction (Verified 04/18/17 17:15) Nausea Home Medications: HOME MEDICATIONS clonazePAM [Klonopin] 1 mg PO BID PRN #60 tablet 02/29/16 [Last Taken Unknown] tiZANidine HCL [Tizanidine HCl] 4 mg PO Q8H PRN #90 capsule 02/29/16 [Last Taken Unknown] ARIPiprazole [Abilify] 10 mg PO DAILY 03/26/16 [Last Taken Unknown] Esomeprazole Magnesium [Nexium] 40 mg PO DAILY 03/26/16 [Last Taken Unknown] Timolol Maleate [Blocadren] 10 mg PO BID 03/26/16 [Last Taken Unknown] Topiramate [Topamax] 200 mg PO BID 03/26/16 [Last Taken Unknown] lamoTRIgine [Lamictal Xr] 300 mg PO HS 03/26/16 [Last Taken Unknown] Modafinil [Provigil] 200 mg PO BID 08/16/16 [Last Taken Unknown] Oxybutynin Chloride [Ditropan Xl] 10 mg PO HS 10/12/16 [Last Taken Unknown] QUEtiapine FUMARATE [Seroquel] 300 mg PO HS 10/12/16 [Last Taken Unknown] Sertraline HCl [Zoloft] 50 mg PO HS 10/12/16 [Last Taken Unknown] Butalbit/Acetamin/Caff/Codeine [Fioricet W/Codeine] 1 cap PO Q6H PRN #10 capsule 10/13/16 [Last Taken Unknown] Diclofenac Potassium 50 mg PO DAILY 02/23/17 [Last Taken Unknown] Levothyroxine Sodium [Synthroid] 175 mcg PO DAILY 03/27/17 [Last Taken Unknown] Ibuprofen [Motrin] 600 mg PO TID PRN #30 tab 04/13/17 [Last Taken Unknown] - History of Present History Narrative: Patient had been fairly depressed and at a point of the deepest depression patient took an unknown quantity of clonazepam, Seroquel, iron, Lamictal and Abilify. Patient arrived in the ER obtunded and unable to communicate exactly what happened, however she had called family and hour or 2 earlier and stated that she was tired of living and simply wanted to end her life. It is estimated that she took the medicines between 2 and 3 hours prior to arrival. Timing: constant Severity: severe Review of Systems - Review of Systems Constitutional: Present: other - unable to obtain due the patients severe medical condition EYE: Present: no symptoms reported ENT: Present: no symptoms reported Respiratory: Present: no symptoms reported Cardiology: Present: no symptoms reported Gastrointestinal/Abdominal: Present: no symptoms reported Genitourinary: Present: no symptoms reported Musculoskeletal: Present: no symptoms reported Skin: Present: no symptoms reported Neurological: Present: no symptoms reported Endocrine: Present: no symptoms reported Hematologic/Lymphatic: Present: no symptoms reported Psych: Present: no symptoms reported - Patient's Past Medical History Patient History - Medical: Anxiety, Bipolar, Depression, GERD, Migraines, Other Patient History - Cardiac/Respiratory: Asthma Patient History - Cancer: No Hx of Cancer Patient History - Surgical Procedures: Appendectomy, Cholecystectomy, Other Patient History - Other: None - Family History Grandmother-Maternal Family History - Medical: Family History - Cardiac/Respiratory: No pertinent hx, COPD Father Family History - Cardiac/Respiratory: Hypertension Mother Family History - Medical: No pertinent hx - Social History Living Situations: home Abuse History: No History of abuse Psych History: Hx of Anxiety, Hx of Depression, Hx of Bipolar Disorder, Current tx/ever been on anti-depressants or anti-anxiety meds Does anyone smoke in the home?: Yes Alcohol Use: rarely Drug Use: none - Immunizations Immunizations Up to Date: Yes Hx Pneumococcal Vaccination: No History of Influenza Vaccine: No Physical Exam - Physical Exam General Appearance: Present: severe distress, other - obtunded Eye Exam: Normal inspection: bilateral, PERRL: bilateral Ears, Nose, Throat: Present: normal ENT inspection, H, normal pharynx Neck: Present: normal inspection, nontender Respiratory: Present: normal breath sounds, no accessory muscle use, chest nontender, lungs clear, other - pt is not protecting her airway and is pooling her secretions Cardiovascular/Chest: Present: no murmur, normal peripheral pulses, tachycardia Gastrointestinal/Abdominal: Present: normal bowel sounds, nondistended, soft, no organomegaly Rectal Exam: Present: deferred Extremity Exam: Present: normal inspection, no edema Neurological Exam: Present: other - obtunded and not arousable Skin Exam: Present: normal color, warm/dry Lymphatic Exam: Present: no adenopathy ED Progress - Results and Orders Patient's Lab Results:: I have reviewed the patient's lab results. - Vital Signs Patient's Vital Signs:: I have reviewed the patient's vital signs. Vital Signs: Vital Signs 04/18/17 17:07 Temperature 37.1 C Pulse Rate 112 H Respiratory 19 Rate Blood Pressure 112/65 O2 Sat by Pulse 93 Oximetry - EKG EKG: NSR - tachycardia EKG read: Interp. by me - X-Ray X-Ray #1 X-Ray: chest Interpretation: Interp. by me - Progress/Reassessment Chief Complaint: Drug Overdose Procedures Intubation Method: endotrachial with venti Tube Size (cm): 7.0 Medications: Succinylcholine Breath Sounds after Intubation: equal Intubation Complications: no complications Post Intubation Xray: Yes Plan - Plan Plan: Patient is currently on a ventilator, patient has both an NG tube in place and a Harding catheter in place. We have IV fluids running and patient is on a propofol drip. Patient will be admitted to the intensive care unit for monitoring and allowing whatever medicine she took to wash out of her system. It is alleged that she also took iron so we will do some baseline iron studies on her as well. Dr. Bellamy has agreed to accept care for this patient in the intensive care unit. Departure - Departure Clinical Impression: Overdose Qualifiers: Encounter type: initial encounter Injury intent: intentional self-harm Qualified Code(s): T50.902A - Poisoning by unspecified drugs, medicaments and biological substances, intentional self-harm, initial encounter Suicidal behavior Qualifiers: Attempted self-injury: with attempted self-injury Qualified Code(s): T14.91 - Suicide attempt Disposition: [facility] Condition: Critical - Critical Care Total Time (mins): 80 Critical Care: Patient required extensive critical care time on the emergency department. Patient required conscious sedation, endotracheal intubation to control the airway, NG tube placement and Harding placement. As well as continuous sedation with propofol. We did do RSI and given the underlying mental status of the patient the only thing that was required at that juncture with succinylcholine. For some unknown reason the initial ET tube spinal leak so using a bougie we did a 2 exchange which was successful in the ED. Patient is admitted to the ICU and critical condition. Dr. Bellamy will manage her there I did do iron studies for further evaluation of the possible iron overdose.
[2017-04-18 18:54] LABS: Cocaine Ur Negative (NEGATIVE); Urine Barbiturate Negative (NEGATIVE); Urine Opiates Negative (NEGATIVE); Urine PCP Negative (NEGATIVE); Urine THC Negative (NEGATIVE)
[2017-04-18 18:55] LABS: Iron 157 mcg/dL (35-120); Transferrin Sat. (% Sat.) 61 % (15-55)
[2017-04-18 18:56] LABS: Urine Benzodiazepines Positive (NEGATIVE)
[2017-04-18 19:27] LABS: Urine Appearance Slightly Cloudy; Urine Bacteria 4+; Urine Color Yellow; Urine Nitrite Positive (NEGATIVE); Urine RBC None Seen /hpf (0-5); Urine Renal Epithelial Cell Few - 1+ /hpf; Urine Squamous Epithelial Cell Few - 1+ /hpf; Urine WBC None Seen /hpf (0-5)
--- NOTE | 2017-04-18 21:43 | HP ---
Chief Complaint - Chief Complaint Date of Service: 04/18/17 Time of Service: 21:43 Chief Complaint: " drug overdose" History of Present Illness: 41 yr old WF w/o H/O anxiety, depression, bipolar disorder, GERD , migraines, obesity apparently took a unknown number of medications [ prescription and non -prescription] and arrived in the ER obtunded after calling her family. Patient was found to have pooling of secretions and was intubated in the ER and was started on a propofol drip, IV fluids and had a Harding's catheter placed. H/ O multiple suicide attempts. There is a possibility of iron overdose. Patient was admitted into the ICU. - Patient's Past Medical History Patient History - Medical: Anxiety, Bipolar, Depression, GERD, Migraines, Other Patient History - Cardiac/Respiratory: Asthma Patient History - Cancer: No Hx of Cancer Patient History - Surgical Procedures: Appendectomy, Cholecystectomy, Other Patient History - Other: None LMP (females 10-50): Menopausal - Family History Grandmother-Maternal Family History - Medical: Family History - Cardiac/Respiratory: No pertinent hx, COPD Father Family History - Cardiac/Respiratory: Hypertension Family History - Cancer: Pancreatic Mother Family History - Medical: No pertinent hx - Social History Living Situations: home Abuse History: No History of abuse Psych History: Hx of Anxiety, Hx of Depression, Hx of Bipolar Disorder, Current tx/ever been on anti-depressants or anti-anxiety meds Does anyone smoke in the home?: Yes Smoking Status: Current every day smoker Have you smoked in the past 12 months: Yes Alcohol Use: rarely Drug Use: none - Immunizations Immunizations Up to Date: Yes Hx Pneumococcal Vaccination: No History of Influenza Vaccine: No Review Of Systems (GEN) - Review of Systems Generalized/Overall Review: Present: No Symptoms Reported - NOT OBTAINABLE PATIENT IS CURRENTLY INTUBATED. Immunizations: IMMUNIZATION HX Immunizations Up to Date Yes History of Influenza Vaccine No Hx Pneumococcal Vaccination No Allergies/Adverse Reactions: Allergies Allergy/AdvReac Type Severity Reaction Status Date / Time sumatriptan [From Imitrex] Allergy Mild Verified 04/18/17 17:15 sumatriptan succinate Allergy Mild Verified 04/18/17 17:15 [From Imitrex] tramadol AdvReac Nausea Verified 04/18/17 17:15 Home Medications: HOME MEDICATIONS Levothyroxine Sodium [Synthroid] 175 mcg PO DAILY 03/27/17 [Last Taken Unknown] Ibuprofen [Motrin] 400 mg PO BID PRN #30 tab 04/21/17 [Last Taken Unknown] Nicotine [Nicoderm] 21 mg TD Q24H #30 patch.td24 04/21/17 [Last Taken Unknown] Exam - Exam Vital Signs: Vital Signs - Last Taken Temp 36.1 C L 04/18/17 19:20 Pulse 108 H 04/18/17 19:20 Resp 16 04/18/17 19:52 BP 118/73 04/18/17 19:20 Pulse Ox 98 04/18/17 18:58 Constitutional: Present: Young, Morbidly obese - Currently intubated, on a ventilator on propofol drip. Eye Exam: right eye: other - sluggish and reactive Neck: Present: normal inspection, trachea midline Respiratory: Present: no accessory muscle use, decreased breath sounds Cardiovascular/Chest: Present: regular rate, rhythm. Absent: tachycardia Peripheral Pulses: carotid (R): 2+, carotid (L): 2+ Abdomen: Present: Normal bowel sounds, soft, nontender, obese /Rectal: Present: Exam deferred Extremity: Present: normal inspection. Absent: lower extremity edema Skin Exam: Present: normal color, warm/dry Appearance: Present: other - Cannot be tested Eye contact: Present: other - Cannot be tested Thoughts: Present: other - Cannot be tested Diagnostic Studies: Laboratory Tests 04/18/17 17:35 WBC 7.6 Hgb 12.0 L Hct 36.1 L MCV 100.0 Plt Count 190 04/18/17 17:35 Plasma Sodium 142 Potassium 3.9 D Chloride 110 H Carbon Dioxide 23.7 L BUN 13 Creatinine 0.82 Est GFR (Non-Af Amer) 82 Random Glucose 101 Calcium Adj for Albumin 9.9 Magnesium 2.0 Total Bilirubin 0.2 AST 16 ALT 24 Alkaline Phosphatase 62 Total Protein 6.3 Albumin 3.1 L 04/18/17 18:16 Acetaminophen 1.2 L Urine Amphetamine Positive H U Benzodiazepines Scrn Positive H Assessment/Plan - Narrative Narrative: 1. Drug overdose: Tox screen positive for amphetamines and benzodiazepines. History of nicotine abuse. Patient is prophylactically intubated. Continue IV fluids and propofol drip. Try to wean patient in a.m. 2. Suicide attempt: Obtain psych consult when patient is extubated and more awake. 3. Bipolar affective disorder: Anxiety and depression. May require adjustment of medication. 4. Morbid obesity: BMI 42.0.
[2017-04-19] MEDS: PROPOFOL 1,000 MG/100 ML PIGGYBACK IV PRN ×2 (00:24→06:41)
[2017-04-19 09:38] LABS: Albumin * 3.1 gm/dl (3.4-5.0); Anion Gap 11.5 mmol/L (6.8-13.8); BUN/Creatinine Ratio 11.5 (9.0-21.6); Bilirubin, Total 0.4 mg/dL (0.0-1.1); Ca. Corrected For Albumin 9.8 mg/dL (8.4-10.2); Calcium * 9.4 mg/dL (7.9-10.9); Carbon Dioxide 24.2 mmol/L (24-32.6); Potassium 3.7 mmol/L (3.4-4.6); Total Protein 6.4 gm/dL (6.2-8.2)
[2017-04-19 09:41] LABS: Hematocrit 37.5 % (37.0-47.0); Hemoglobin 12.3 gm/dL (12.5-16.0); Mean Cell Volume 100.8 fl (78-100); Mean Corpuscular Hemoglobin 33.1 pg (27-31); Mean Corpuscular Hgb Conc 32.8 g/dl (32-36); Mean Platelet Volume 11.8 fl (6.0-9.5); Neutrophil % 75.5 % (42-75.0); Platelet Count 192 K/mm3 (150-450); Red Blood Count 3.72 M/mm3 (4.2-5.4); Red Cell Distribution Width 13.4 % (11.5-14.0); White Blood Count 11.9 K/mm3 (4.0-10.5)
[2017-04-19] MEDS ORDERED: ALBUTEROL SULFATE 2.5 MG/3 ML VIAL.NEB IH PRN (11:09)
[2017-04-19] MEDS: NICOTINE 21 MG PATC TD SCH (13:55)
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
--- NOTE | 2017-04-19 21:57 | PN ---
Subjective - Date and Time Seen Date: 04/19/17 Time: 21:57 Subjective Narrative: patient very sleepy. not willing to answer questions. Objective - Review of Systems Generalized/Overall Review: Reports: Fatigue - unable to obtain ROS due to patient's condition. - Vitals Vitals: Last Vital Signs Temp 36.6 C 04/19/17 19:22 Pulse 105 H 04/19/17 19:22 Resp 22 H 04/19/17 19:22 BP 102/59 04/19/17 19:22 Pulse Ox 95 04/19/17 19:22 - Abnormal Lab Findings Abnormal Lab Findings: Abnormal Lab Results 04/19/17 04/19/17 04/19/17 Range/Units 06:10 09:10 09:10 WBC 11.9 H D (4.0-10.5) K/mm3 RBC 3.72 L (4.2-5.4) M/mm3 Hgb 12.3 L (12.5-16.0) gm/dL MCV 100.8 H (78-100) fl MCH 33.1 H (27-31) pg MPV 11.8 H (6.0-9.5) fl Immature Gran # (Auto) 0.05 H (0.000-0.0310) K/mm3 Neutrophils % 75.5 H (42-75.0) % Lymphocytes % 14.5 L (20-51) % Neutrophils # 9.0 H (1.3-6.0) K/mm3 pCO2 31.0 L (32.0-45.0) mmHg pO2 (83.0-108.0) mmHg HCO3 18.6 L (21.0-28.0) mmol/L Total CO2 (19.0-24.0) mmol/L Base Excess -5.2 L (-2.0-3.0) mmol/L Chloride 110 H (97-106) mmol/L Albumin 3.1 L (3.4-5.0) gm/dl 04/19/17 04/19/17 Range/Units 10:44 14:45 WBC (4.0-10.5) K/mm3 RBC (4.2-5.4) M/mm3 Hgb (12.5-16.0) gm/dL MCV (78-100) fl MCH (27-31) pg MPV (6.0-9.5) fl Immature Gran # (Auto) (0.000-0.0310) K/mm3 Neutrophils % (42-75.0) % Lymphocytes % (20-51) % Neutrophils # (1.3-6.0) K/mm3 pCO2 31.4 L 27.7 L (32.0-45.0) mmHg pO2 81.2 L 74.7 L (83.0-108.0) mmHg HCO3 19.1 L 15.7 L (21.0-28.0) mmol/L Total CO2 16.5 L (19.0-24.0) mmol/L Base Excess -4.7 L -8.1 L (-2.0-3.0) mmol/L Chloride (97-106) mmol/L Albumin (3.4-5.0) gm/dl - Exam Constitutional: Present: No distress, Lethargic, Obese ENT Exam: Present: hearing grossly normal Neck: Present: supple Breasts: Present: Exam deferred Respiratory: Present: lungs clear, normal breath sounds, no respiratory distress Cardiovascular/Chest: Present: normal peripheral pulses, regular rate, rhythm, no JVD Abdomen: Present: soft, nontender, nondistended, obese Extremity: Present: non-tender, no pedal edema Skin Exam: Present: normal color, warm/dry, no cyanosis Assessment/Plan Plan Narrative: Overdose / Suicide behavior - took an unknown amount of clonazepam, seroquel, iron, lamictal and abilify to END own life - currently off ventilator - was also unwilling to talk with Dr Estefania jeter - he will come by tomorrow (04/20/17) and try and talk with her again. - await further recommendations from him. - has been very sleepy throughout the day but awakens easily and is cooperative with staff - Continue to monitor - recheck labs in am - Problems/Diagnosis (1) Overdose Problem: Acute Qualifiers: Encounter type: initial encounter Injury intent: intentional self-harm Qualified Code(s): T50.902A - Poisoning by unspecified drugs, medicaments and biological substances, intentional self-harm, initial encounter (2) Suicidal behavior Problem: Acute Qualifiers: Attempted self-injury: with attempted self-injury Qualified Code(s): T14.91 - Suicide attempt
[2017-04-19] MEDS: ENOXAPARIN SODIUM 40 MG/0.4 ML SYRG SC SCH (23:43)
[2017-04-20] MEDS: ONDANSETRON HCL/PF 2 MG/ML VIAL IV PRN ×4 (00:33→18:51)
[2017-04-20] MEDS ORDERED: NORMAL SALINE 1,000 ML IV ONE (09:48)
[2017-04-20] MEDS: NICOTINE 21 MG PATC TD SCH (13:31)
--- NOTE | 2017-04-20 14:41 | PN ---
Subjective - Date and Time Seen Date: 04/20/17 Time: 14:40 Subjective Narrative: very sedated but able to give a better H/O . Normally sees a psychologist at [place], not seeing her due to lack of money. Objective - Review of Systems Generalized/Overall Review: Denies: Weakness Respiratory: Denies: Shortness of Breath Cardiac: Denies: Chest Pain, Edema Neurological: Reports: Anxiety, Depressed, Emotional Problems - Vitals Vitals: Last Vital Signs Temp 36.9 C 04/20/17 14:22 Pulse 94 04/20/17 14:22 Resp 16 04/20/17 14:22 BP 128/71 04/20/17 14:22 Pulse Ox 95 04/20/17 14:22 - Abnormal Lab Findings Abnormal Lab Findings: Lab Results - Exam Constitutional: Present: Young, Morbidly obese - sleepy , answers questions appropriately. ENT Exam: Present: hearing grossly normal, moist mucous membranes Respiratory: Present: lungs clear, no accessory muscle use Cardiovascular/Chest: Present: regular rate, rhythm. Absent: tachycardia Abdomen: Present: Normal bowel sounds, soft, nontender, obese Extremity: Present: normal inspection. Absent: no pedal edema Eye contact: Present: cooperative, normal speech Cauti Physician Documentation - Urinary Catheter Management Urethral ([place]) Date of Removal: 04/21/17 Time of Removal: 10:30 Assessment/Plan Plan Narrative: 1. Suicide attempt with drug overdose: S/P intubation 1 day. Medically stable. Still somewhat sedated; continue to monitor. Possible discharge in a.m. 2. Bipolar affective disorder: Seen by psychiatry. Will be started on medications on an outpatient basis. 3. Nicotine abuse: Smokes 1 PPD. 4. Morbid obesity: BMI-42.0.
[2017-04-20] MEDS ORDERED: POTASSIUM CHLORIDE 20 MEQ TABLET.SA PO ONE (18:00)
[2017-04-20] MEDS: NORMAL SALINE 1,000 ML IV PRN (19:35)
[2017-04-20] MEDS: ENOXAPARIN SODIUM 40 MG/0.4 ML SYRG SC SCH (22:31)
[2017-04-21] MEDS ORDERED: SENNOSIDES/DOCUSATE SODIUM 1 TAB TABLET PO PRN (00:06)
[2017-04-21] MEDS: ACETAMINOPHEN 325 MG TABLET PO PRN ×2 (00:24→06:42)
[2017-04-21] MEDS: NORMAL SALINE 1,000 ML IV PRN (03:07)
[2017-04-21 07:01] VITALS: BP 140/84
[2017-04-21] MEDS ORDERED: SULFAMETHOXAZOLE/TRIMETHOPRIM 1 TAB TABLET PO SCH (09:00)
--- NOTE | 2017-04-21 13:35 | DS ---
(1) Suicide attempt by multiple drug overdose Problem: Acute (2) Bipolar affective disorder Problem: Chronic Qualifiers: Current episode severity: unspecified (3) Hypothyroidism Problem: Acute Qualifiers: Hypothyroidism type: unspecified Qualified Code(s): E03.9 - Hypothyroidism , unspecified (4) Tobacco abuse disorder Problem: Chronic (5) Obesity Diagnosis(s): BMI-42.0 Problem: Chronic Qualifiers: Obesity type: unspecified obesity type Description of Stay: DATE OF ADMISSION: 04/18/2017. DATE OF DISCHARGE: 04/21/2017. DIAGNOSTIC: NONE. DISCHARGE SUMMARY: Taya Terrazas is a 42 yr old WF with a H/O hypothyroidism, bipolar affective disorder, anxiety depression, morbid obesity [BMI 42.0], nicotine abuse[1 PPD] who who arrived in the ER obtunded after taking an unknown amount of medications a few hours prior to arrival. She had called her family prior to coming over and stated she was going to end her life as she was tired of it. She had pooling of secretions and was intubated and placed on a propofol drip, IV fluids and a Harding's catheter was inserted. A tox screen was positive for benzodiazepines and amphetamines. She was transferred to SCU. She was extubated on 04/19/17 and continued to remain very sedated. She was not very cooperative and did not want to answer questions. Dr. Mac[ psychiatry] was consulted for the same. She stated she could not see her psychologist at [place] due to lack of money. Patient was monitored for the next couple of days as she continued to remain very sedated. She was easily arousable and would answer questions. She was discharged in a stable condition on 04/21/2017 with follow-up with PCP, psychologist and psychiatrist in 1-2 weeks. A total of 40 minutes [ 15 minutes in examination of patient of which greater than 50% was spent in counseling, discussing treatment options and prognosis] and 25 minutes in preparing and dictating discharge summary. Procedures Performed: see notes below - INTUBATION Results and Findings: Laboratory Tests 04/18/17 04/19/17 17:35 09:10 WBC 7.6 11.9 H D Hgb 12.0 L 12.3 L Hct 36.1 L 37.5 MCV 100.0 100.8 H Plt Count 190 192 04/18/17 04/19/17 17:35 09:10 Plasma Sodium 142 142 Potassium 3.9 D 3.7 Chloride 110 H 110 H Carbon Dioxide 23.7 L 24.2 BUN 13 10 Creatinine 0.82 0.87 Est GFR (Non-Af Amer) 82 77 Calcium Adj for Albumin 9.9 9.8 Magnesium 2.0 Total Bilirubin 0.2 0.4 AST 16 16 ALT 24 22 Alkaline Phosphatase 62 68 Total Protein 6.3 6.4 Albumin 3.1 L 3.1 L 04/18/17 17:35 Lactic Acid, Venous 1.1. Troponin I Less than 0.017 04/18/17 18:16 Acetaminophen 1.2 L Urine Amphetamine Positive H U Benzodiazepines Scrn Positive H Ethyl Alcohol < 3.0 Discharge Disposition: Home self care Disposition: Home self-care Condition: Undetermined Discharge Activity: Activity as tolerated Discharge Diet: Low salt, Low fat/chol Referrals: Monik Trimble MD [Primary Care Provider] - Consultation Done:: Dr. Mac Problem Oriented Discharge Instructions to Patient/Family: Drug Overdose Additional Patient Instructions (free text): [facility] phone number, . Keep appt with Dr. Trimble in 1-[address] Mac in 1 week [ to discuss Psych meds]. Please pill out Dr. Mac packet and bring to appt. D/C Smoking. Please note all other Psych meds have been discontinued. Only prescription med - levothyroxine. [facility] will call you tomorrow with follow up appointments. Prescriptions (Any new or edited meds): Ibuprofen [Motrin] 400 mg PO BID PRN #30 tab PRN Reason: Headaches Nicotine [Nicoderm] 21 mg TD Q24H #30 patch.td24 Complete Home Medications List: Complete Home Medication List: Levothyroxine Sodium [Synthroid] 175 mcg PO DAILY 03/27/17 Ibuprofen [Motrin] 400 mg PO BID PRN #30 tab 04/21/17 Nicotine [Nicoderm] 21 mg TD Q24H #30 patch.td24 04/21/17
[2017-04-21] MEDS: NICOTINE 21 MG PATC TD SCH (15:17)
== END 2017-04-21 14:10 | disposition home or self-care (01) | DRG 918 ==
LOC: ER 16:59 → SCU 17:46 → MS 04-19 17:46
PROVIDERS: ADMIT Internal Medicine; ATTEND Internal Medicine
PROC: 0T9B70Z Drainage of Bladder with Drainage Device, Via Natural or Artificial Opening (ICD-10-PCS; principal; 2017-04-18)
PROC: 0BH17EZ Insertion of Endotracheal Airway into Trachea, Via Natural or Artificial Opening (ICD-10-PCS; principal; 2017-04-18)
DX: T42.4X2A Poisoning by benzodiazepines, intentional self-harm, initial encounter (principal); Z68.41 Body mass index [BMI] 40.0-44.9, adult; T43.592A Poisoning by other antipsychotics and neuroleptics, intentional self-harm, initial encounter; T45.4X2A Poisoning by iron and its compounds, intentional self-harm, initial encounter; Y92.009 Unspecified place in unspecified non-institutional (private) residence as the place of occurrence of the external cause; F17.210 Nicotine dependence, cigarettes, uncomplicated; E03.9 Hypothyroidism, unspecified; E66.9 Obesity, unspecified
CPT/HCPCS: 31500; 36415; 36600; 51702; 80053; 80307; 81001; 82803; 83540; 83550; 83605; 83735; 84484; 85025; 87077; 87086; 87186; 93005; 94002; 94003; 94640; 96365; 99291; 99292; G0480; G0481; J2405

== ENCOUNTER 2017-06-08 09:01 | Emergency (ER) | payer MEDICARE, OTHER ==
[2017-06-08 09:06] VITALS: BP 137/95
[2017-06-08] MEDS ORDERED: ONDANSETRON 4 MG TAB.RAPDIS PO ONE (09:15)
[2017-06-08] MEDS ORDERED: NALBUPHINE HCL 20 MG/ML AMPUL IM ONE (09:15)
[2017-06-08] MEDS ORDERED: ONDANSETRON 4 MG TAB.RAPDIS ONE (09:18)
[2017-06-08] MEDS ORDERED: NALBUPHINE HCL 20 MG/ML AMPUL ONE (09:18)
--- NOTE | 2017-06-08 09:22 | ERNOTE ---
Headache ER HPI - Narrative Date of Service: 06/08/17 - General Presenting Symptoms: headache, "migraine" Time Seen by Provider: 06/08/17 09:10 Source: patient Exam Limitations: no limitations - Immun/Allergies/Home Medications Immunizations: IMMUNIZATION HX Immunizations Up to Date Yes History of Influenza Vaccine No Hx Pneumococcal Vaccination No Allergies/Adverse Reactions: Allergies sumatriptan [From Imitrex] Allergy (Mild, Verified 06/08/17 09:06) sumatriptan succinate [From Imitrex] Allergy (Mild, Verified 06/08/17 09:06) tramadol Adverse Reaction (Verified 06/08/17 09:06) Nausea Home Medications: HOME MEDICATIONS Levothyroxine Sodium [Synthroid] 175 mcg PO DAILY 03/27/17 [Last Taken Unknown] Ibuprofen [Motrin] 400 mg PO BID PRN #30 tab 04/21/17 [Last Taken Unknown] Nicotine [Nicoderm] 21 mg TD Q24H #30 patch.td24 04/21/17 [Last Taken Unknown] - Pain Pain Score: 8 - History of Present Illness Narrative: patient having migraine began yesterday similair to previous headaches Timing of Headache: gradual Context Headache: Present: new onset Quality: Present: pressure, throbbing Severity Maximum: Present: moderate Severity-Currently: Present: moderate Headache frequency: Present: frequent headaches Modifying Factors - (Worsens): Reports: movement, exposure to light Associated Symptoms: Reports: nausea Exacerbated by:: Reports: light, noise, movement Prior Treament: Reports: similar symptoms before Review of Systems - Review of Systems Constitutional: Present: See HPI EYE: Present: blurred vision ENT: Present: no symptoms reported Respiratory: Present: no symptoms reported Cardiology: Present: no symptoms reported Gastrointestinal/Abdominal: Present: no symptoms reported Genitourinary: Present: no symptoms reported Musculoskeletal: Present: no symptoms reported Skin: Present: no symptoms reported Neurological: Present: See HPI, headache, dizziness/light-headedness Endocrine: Present: no symptoms reported Hematologic/Lymphatic: Present: no symptoms reported Psych: Present: no symptoms reported - Patient's Past Medical History Patient History - Medical: Anxiety, Bipolar, Depression, GERD, Migraines, Other Patient History - Cardiac/Respiratory: Asthma Patient History - Cancer: No Hx of Cancer Patient History - Surgical Procedures: Appendectomy, Cholecystectomy, Other Patient History - Other: None - Family History Family History:: no untoward family reactions to anesthesia, no familial bleeding tendencies - Family History Grandmother-Maternal Family History - Medical: Family History - Cardiac/Respiratory: No pertinent hx, COPD Family History - Cancer: No pertinent family hx Father Family History - Cardiac/Respiratory: No pertinent hx, Hypertension Family History - Cancer: No pertinent family hx, Pancreatic Mother Family History - Medical: No pertinent hx Family History - Cardiac/Respiratory: No pertinent hx Family History - Cancer: No pertinent family hx - Social History Living Situations: home Abuse History: No History of abuse Psych History: Hx of Anxiety, Hx of Depression, Hx of Bipolar Disorder, Current tx/ever been on anti-depressants or anti-anxiety meds Does anyone smoke in the home?: Yes Smoking Status: Current every day smoker Have you smoked in the past 12 months: Yes Do you dip or chew tobacco: No Patient requests Smoking Cessation Consult: No Initiate information on Smoking Cessation: No Alcohol Use: rarely Drug Use: none - Immunizations Immunizations Up to Date: Yes Hx Pneumococcal Vaccination: No History of Influenza Vaccine: No Physical Exam - Physical Exam General Appearance: Present: alert, moderate distress, anxious Head Exam: Present: normal inspection, no evidence of injury Eye Exam: Normal inspection: bilateral, PERRL: bilateral, EOMI: bilateral Ears, Nose, Throat: Present: normal ENT inspection Neck: Present: normal inspection, nontender Respiratory: Present: no respiratory distress, normal breath sounds, no accessory muscle use, chest nontender, lungs clear Cardiovascular/Chest: Present: regular rate, rhythm, no murmur, normal peripheral pulses Peripheral Pulses: N=norm/S=strong/W=weak/B=bound/A=absent: Carotid (R): Normal , Carotid (L): Normal, Radial (R): Normal, Radial (L): Normal, Femoral (R): Normal, Femoral (L): Normal, Dorsalis-pedis (R): Normal, Dorsalis-pedis (L): Normal Gastrointestinal/Abdominal: Present: normal bowel sounds, nontender, nondistended, soft, no organomegaly Back Exam: Present: normal inspection, normal range of motion, no CVA tenderness , no vertebral tenderness Extremity Exam: Present: normal inspection, non-tender, normal range of motion, no edema Neurological Exam: Present: alert, oriented, normal mood/affect, no motor/ sensory deficits DTR: N=norm/NB=norm/brisk/A=abs/DD=dull/dimin/HC=hyperactive: Bicep (R): Normal , Bicep (L): Normal, Tricep (R): Normal, Tricep (L): Normal, Knee (R): Normal, Knee (L): Normal, Ankle (R): Normal, Ankle (L): Normal Skin Exam: Present: normal color, warm/dry Lymphatic Exam: Present: no adenopathy ED Progress - Vital Signs Patient's Vital Signs:: I have reviewed the patient's vital signs. Vital Signs: Vital Signs 06/08/17 09:04 Temperature 36.8 C Pulse Rate 90 Respiratory 12 Rate Blood Pressure 137/95 O2 Sat by Pulse 97 Oximetry - Progress/Reassessment Chief Complaint: Headache Progress:: Improved - Transfer of Care Expected Disposition: Discharge Departure Clinical Impression: Migraines - Departure Disposition: Home self-care Condition: Fair Instructions: Migraine Headache, [id number] Referrals: Monik Trimble MD [Primary Care Provider] -
== END 2017-06-08 09:40 | disposition home or self-care (01) ==
LOC: ER 09:01
DX: G43.909 Migraine, unspecified, not intractable, without status migrainosus (principal); F17.200 Nicotine dependence, unspecified, uncomplicated